=== PATIENT | male | born 1995 | race Caucasian/White ===

== ENCOUNTER 2022-04-28 09:30 | Emergency (ER) | payer SELFPAY ==
[2022-04-28 09:43] VITALS: RESP 18; TEMP 98.1
--- NOTE | 2022-04-28 10:11 | ED ---
Fall HPI - General Chief Complaint: Fall Stated Complaint: fall - lt shoulder injury, headache Time Seen by Provider: 04/28/22 09:46 Source: patient, RN notes reviewed Mode of arrival: ambulatory Limitations: no limitations - History of Present Illness Initial Comments: 6-year-old male presents emergency Department with chief complaint of a fall. Patient states he went to catch himself off his porch which he reports is approximately 8 feet. Patient states he believes he loss conscious. Does complain of headache denies any significant neck pain but complains of back pain, shoulder pain. Patient states he has no lower abdominal pain no lower extremity injuries patient was able to and bleeding in the emergency department. Denies any blood thinners no blurred vision. No prior orthopedic injuries. - Related Data Allergies Allergy/AdvReac Type Severity Reaction Status Date / Time amoxicillin Allergy Unknown Verified 04/28/22 09:44 Penicillins Allergy Unknown Verified 04/28/22 09:44 Review of Systems ROS Statement: Those systems with pertinent positive or pertinent negative responses have been documented in the HPI. ROS Other: All systems not noted in ROS Statement are negative. Past Medical History Past Medical History: No Reported History History of Any Multi-Drug Resistant Organisms: None Reported Past Surgical History: Tonsillectomy Past Psychological History: No Psychological Hx Reported Smoking Status: Never smoker Past Alcohol Use History: Occasional Past Drug Use History: None Reported General Exam Limitations: no limitations General appearance: alert, in no apparent distress Head exam: Present: atraumatic, normocephalic, normal inspection Eye exam: Present: normal appearance, PERRL, EOMI. Absent: scleral icterus, conjunctival injection, periorbital swelling ENT exam: Present: normal exam, normal oropharynx, mucous membranes moist Neck exam: Present: normal inspection, full ROM. Absent: tenderness, meningismus, lymphadenopathy Respiratory exam: Present: normal lung sounds bilaterally. Absent: respiratory distress, wheezes, rales, rhonchi, stridor Cardiovascular Exam: Present: regular rate, normal rhythm, normal heart sounds. Absent: systolic murmur, diastolic murmur, rubs, gallop, clicks GI/Abdominal exam: Present: soft, normal bowel sounds. Absent: distended, tenderness, guarding, rebound, rigid Extremities exam: Present: other (Left shoulder there is tenderness diffusely in the anterior lateral portion, lower extremity strength equal bilaterally neurovascular intact nontender) Back exam: Present: normal inspection, full ROM, tenderness (Thoracic), paraspinal tenderness, vertebral tenderness. Absent: CVA tenderness (R), CVA tenderness (L) Neurological exam: Present: alert, oriented X3, CN II-XII intact, reflexes normal. Absent: motor sensory deficit Skin exam: Present: warm, dry, intact, normal color. Absent: rash Course Vital Signs 04/28/22 09:39 Temperature 98.1 F Pulse Rate 74 Respiratory 18 Rate Blood Pressure 139/78 O2 Sat by Pulse 99 Oximetry Medical Decision Making - Medical Decision Making 26-year-old male presented for fall CT read shows no acute process, x-ray of the left shoulder and thoracic interpreted and does not show evidence of acute fracture. Patient we discharged in stable condition with follow-up with orthopedics return parameters were discussed. Disposition Clinical Impression: Fall, Head contusion, Headache, Sprain of left shoulder Disposition: HOME SELF-CARE Condition: Stable Instructions (If sedation given, give patient instructions): Head Injury (DC) Additional Instructions: Please return to the Emergency Department if symptoms worsen or any other concerns. Is patient prescribed a controlled substance at d/c from ED?: No Referrals: Chaim Marrufo MD [Primary Care Provider] - 1-2 days Benigno Boothe MD [STAFF PHYSICIAN] - 1-2 days Time of Disposition: 11:01
--- NOTE | 2022-04-28 10:31 | CT ---
EXAMINATION TYPE: CT brain carissa colin con DATE OF EXAM: 04/28/2022 COMPARISON: NONE HISTORY: Fall injury with headache and neck pain CT DLP: 1613 mGycm. Automated Exposure Control for Dose Reduction was Utilized. TECHNIQUE: CT scan of the head and cervical spine are performed without contrast. FINDINGS: There is no acute intracranial hemorrhage, mass effect, or midline shift identified. The ventricles and sulci are within normal limits in size. Maria-white matter differentiation is maintai afua. The globes are intact and the visualized sinuses are clear. The calvarium is intact. Cervical spine is visualized in its entirety from C1 through upper thoracic levels and demonstrates s atisfactory alignment without evidence of acute fracture or dislocation. Prevertebral soft tissue ap pears within normal limits. The C1-C2 articulation is within normal limits on the coronal images. V ertebral body heights and disc space heights are maintained. Spinal canal is preserved. Thyroid gland appears within normal limits. Lung apices show no pneumothorax. IMPRESSION: 1. There is no acute fracture or dislocation evident in the cervical spine. 2. No acute intracranial hemorrhage, mass effect, or midline shift is seen.
--- NOTE | 2022-04-28 10:44 | XR ---
EXAMINATION TYPE: XR shoulder complete LT DATE OF EXAM: 04/28/2022 CLINICAL HISTORY: Injury with pain TECHNIQUE: Three views of the left shoulder are obtained. COMPARISON: None. FINDINGS: There is no acute fracture/dislocation evident in the left shoulder. The acromioclavicula r and glenohumeral joint spaces appear within normal limits. The visualized ribs are intact and unre markable. IMPRESSION: There is no acute fracture or dislocation in the left shoulder.
--- NOTE | 2022-04-28 10:45 | XR ---
EXAMINATION TYPE: XR thoracic spine 2V DATE OF EXAM: 04/28/2022 CLINICAL HISTORY: Fall with mid back pain. TECHNIQUE: Frontal, lateral, and swimmer's view of thoracic spine are obtained. COMPARISON: None. FINDINGS: Thoracic spine show dextroconvex scoliosis centered mid thoracic spine without evidence of acute fracture or dislocation. Vertebral body heights and disc space heights are preserved. Visualiz ed ribs are intact bilaterally. IMPRESSION: No acute fracture or dislocation is seen in the thoracic spine.
[2022-04-28 11:31] VITALS: BP 130/85; PULSE 72
== END 2022-04-28 11:31 | disposition home or self-care (01) ==
LOC: EC 09:30
DX: S00.93XA Contusion of unspecified part of head, initial encounter (principal); S43.402A Unspecified sprain of left shoulder joint, initial encounter; Z88.0 Allergy status to penicillin; W23.0XXA Caught, crushed, jammed, or pinched between moving objects, initial encounter
CPT/HCPCS: 70450; 72070; 72125; 99284

== ENCOUNTER → 2022-05-17 | Outpatient (CLI) | payer OTHER ==
--- NOTE | 2022-05-17 22:04 | MR ---
EXAMINATION TYPE: MR shoulder LT wo con DATE OF EXAM: 05/17/2022 COMPARISON: Left shoulder x-ray April 28, 2022 HISTORY: Left shoulder pain, decreased ROM S/P fall. TECHNIQUE: Multiplanar, multisequence imaging of the left shoulder is performed without contrast. FINDINGS: Rotator Cuff: Distal supraspinatus and infraspinatus tendons are intact. Rotator cuff muscle bulk is preserved. Acromioclavicular Joint: No significant spurring or narrowing. Mild capsular hypertrophy Glenohumeral Joint: Small joint effusion. No significant spurring. Labrum: The labrum appears grossly intact given limitation of non-arthrogram study. Biceps Tendon: The long head of biceps is in normal location within bicipital groove. Bone marrow signal intensity: Tiny subchondral cystic change involving the superolateral humeral head . Other: No additional significant abnormality is appreciated. IMPRESSION: No rotator cuff or labral tear is seen.
== END | disposition home or self-care (01) ==
LOC: RADMRIMAIN 12:45
PROVIDERS: ATTEND Orthopaedic Surgery Sports Medicine
DX: S40.012D Contusion of left shoulder, subsequent encounter (principal); G56.92 Unspecified mononeuropathy of left upper limb